=== PATIENT | female | born 1960 | race Caucasian/White ===

== ENCOUNTER 2018-03-14 12:41 | Day surgery (SDC) | payer BC ==
[2018-03-14] MEDS ORDERED: FENTAnyl 50 MCG/ML VIAL (14:26)
[2018-03-14] MEDS ORDERED: MIDAZOLAM 1 MG/ML 2 ML INJ ×3 (14:26)
== END 2018-03-14 15:03 | disposition home or self-care (01) ==
LOC: GIL 12:41
DX: Z12.11 Encounter for screening for malignant neoplasm of colon (principal); K57.90 Diverticulosis of intestine, part unspecified, without perforation or abscess without bleeding; K64.4 Residual hemorrhoidal skin tags; E11.9 Type 2 diabetes mellitus without complications; I10 Essential (primary) hypertension
CPT/HCPCS: 45378; 82962